=== PATIENT | female | born 1960 | race Caucasian/White ===

== ENCOUNTER 2021-05-29 12:05 | Inpatient (IN) | payer BC, MEDICAID ==
[~2021-05-29] VITALS: Ht 165.1 cm; Wt 56.3 kg
[2021-05-29] MEDS ORDERED: aspirin 81mg tab.chew PO ONE (12:20)
[2021-05-29 13:04] LABS: BASOPHILS % (AUTO) 0.5 % (0-1); EOSINOPHILS % (AUTO) 0 % (0-6); HEMATOCRIT 38.9 % (35.0-45.0); HEMOGLOBIN 12.8 g/dl (12.0-16.0); LYMPHOCYTES # (AUTO) 1.3 X10'3 (1.1-4.8); LYMPHOCYTES % (AUTO) 14.1 % (21-51); MEAN CORPUSCULAR HEMOGLOBIN 27.7 PG (27.0-31.0); MEAN CORPUSCULAR VOLUME 84.1 FL (78-98); MEAN PLATELET VOLUME 8.1 FL (7.4-10.4); MONOCYTES # (AUTO) 0.5 X10'3 (0-0.9); MONOCYTES % (AUTO) 5.8 % (2-12); NEUTROPHILS # (AUTO) 7.1 X10'3 (1.8-7.7); NEUTROPHILS % (AUTO) 79.6 % (42-75); PLATELET COUNT 273 X10'3 (140-440); RED BLOOD COUNT 4.63 X10'6 (4.20-5.60); RED CELL DISTRIBUTION WIDTH 13.9 % (11.5-14.5); WHITE BLOOD COUNT 8.9 X10'3 (4.5-11.0)
[2021-05-29 13:13] LABS: APTT 25 SECONDS (22-32)
[2021-05-29 13:15] LABS: ALANINE AMINOTRANSFERASE 27 U/L (12-78); ALBUMIN 3.7 G/DL (3.4-5.0); ALBUMIN/GLOBULIN RATIO 1.1 (1.1-1.5); ALKALINE PHOSPHATASE 54 IU/L (46-116); ANION GAP 10 (8-16); ASPARTATE AMINO TRANSFERASE 16 U/L (10-37); BILIRUBIN,TOTAL 0.8 MG/DL (0.1-1.0); BLOOD UREA NITROGEN 15 MG/DL (7-18); BUN/CREATININE RATIO 18.3 (6.6-38.0); CALCIUM 8.7 MG/DL (8.5-10.1); CHLORIDE 104 MMOL/L (99-107); CREATININE 0.82 MG/DL (0.40-0.90); GLUCOSE 146 MG/DL (70-104); POTASSIUM 3.7 MMOL/L (3.5-5.1); SODIUM 139 MMOL/L (135-145); TOTAL CARBON DIOXIDE 24.9 MMOL/L (24-32); TOTAL PROTEIN 7.1 G/DL (6.4-8.2); eGFR 71 ML/MIN
[2021-05-29 13:23] LABS: MAGNESIUM 1.5 MG/DL (1.5-2.4)
--- NOTE | 2021-05-29 13:41 | NUR ---
Pt reports feeling very anxious about news of being admitted and concern about her heart. MD notified.
[2021-05-29] MEDS ORDERED: LORazepam 2 mg/ml vial IV ONE (13:45)
[2021-05-29] MEDS ORDERED: magnesium 4gm in 100ml NS 100 ML IV PRN (14:10)
[2021-05-29] MEDS ORDERED: potassium Cl 20 mEq SR tablet PO PRN ×2 (14:10)
[2021-05-29] MEDS ORDERED: magnesium Cl slow-release 64mg tablet PO PRN (14:10)
[2021-05-29] MEDS ORDERED: acetaminophen 325mg tablet PO PRN (14:10)
[2021-05-29] MEDS ORDERED: magnesium 2GM in 50ml NS 50 ML IV PRN (14:10)
[2021-05-29] MEDS ORDERED: PERFLUTREN PROTEIN-A MICROSPHR (Optison) 0.22 MG/ML 3ML VIAL IV ONE (14:10)
[2021-05-29] MEDS ORDERED: potassium CL 10mEq/100ml bag 100 ML IV PRN (14:10)
[2021-05-29] MEDS ORDERED: ondansetron/PF 4mg/2ml inj IV PRN (14:10)
[2021-05-29] MEDS ORDERED: metoprolol tartrate 1mg/ml inj IV ONE (14:15)
[2021-05-29] MEDS ORDERED: LISI10TA27 PO (15:31)
--- NOTE | 2021-05-29 15:51 | NUR ---
Metoprolol out of stock in [facility]. Called pharmacy, [facility] states "a tech should be coming around delivering medication."
[2021-05-29] MEDS: lisinopril 10 MG tablet PO SCH (16:05)
[2021-05-29] MEDS ORDERED: regadenoson 0.4mg/5ml syringe IV ONE (16:05)
[2021-05-29] MEDS: metoprolol succinate 25mg (24-HOUR) SR. Tablet PO SCH (16:05)
--- NOTE | 2021-05-29 16:19 | NUR ---
Pharmacy states they are out of metoprolol IV push, they will check rest of hospital and deliver to us if they find a dose.
[2021-05-29 16:58] LABS: POTASSIUM 3.7 MMOL/L (3.5-5.1)
[2021-05-29] MEDS: K and/or MAG REPLACEMENT MC SCH (18:39)
[2021-05-29] MEDS: LORazepam 1 MG tablet PO PRN (23:58)
[2021-05-30 05:05] LABS: ALBUMIN 3.6 G/DL (3.4-5.0); ANION GAP 9 (8-16); BLOOD UREA NITROGEN 13 MG/DL (7-18); BUN/CREATININE RATIO 18.1 (6.6-38.0); CALCIUM 8.7 MG/DL (8.5-10.1); CHLORIDE 107 MMOL/L (99-107); CHOL/HDL RATIO 1.9 (0.00-4.99); CHOLESTEROL 166 MG/DL (0-200); CREATININE 0.72 MG/DL (0.40-0.90); GLUCOSE 110 MG/DL (70-104); HDL CHOLESTEROL 87 MG/DL (35-60); LDL CHOLESTEROL 67 MG/DL (50-100); MAGNESIUM 1.9 MG/DL (1.5-2.4); SODIUM 142 MMOL/L (135-145); TOTAL CARBON DIOXIDE 25.7 MMOL/L (24-32); TRIGLYCERIDES 28 MG/DL (20-135); eGFR 83 ML/MIN
[2021-05-30 05:07] LABS: POTASSIUM 4.1 MMOL/L (3.5-5.1)
[2021-05-30 05:11] LABS: BASOPHILS # (AUTO) 0.1 X10'3 (0-0.2); EOSINOPHILS # (AUTO) 0.1 X10'3 (0-0.9); HEMOGLOBIN 12.5 g/dl (12.0-16.0); LYMPHOCYTES % (AUTO) 36.4 % (21-51); MEAN CORPUSCULAR HEMOGLOBIN 27.8 PG (27.0-31.0); MONOCYTES # (AUTO) 0.8 X10'3 (0-0.9); RED BLOOD COUNT 4.49 X10'6 (4.20-5.60)
[2021-05-30 05:13] LABS: BASOPHILS % (AUTO) 0.9 % (0-1); EOSINOPHILS % (AUTO) 1.1 % (0-6); HEMATOCRIT 38.3 % (35.0-45.0); LYMPHOCYTES # (AUTO) 3.4 X10'3 (1.1-4.8); MEAN CORPUSCULAR HGB CONC 32.6 g/dL (33.0-36.5); MEAN CORPUSCULAR VOLUME 85.2 FL (78-98); MEAN PLATELET VOLUME 9.1 FL (7.4-10.4); MONOCYTES % (AUTO) 8.7 % (2-12); NEUTROPHILS % (AUTO) 52.9 % (42-75); PLATELET COUNT 249 X10'3 (140-440); RED CELL DISTRIBUTION WIDTH 14.4 % (11.5-14.5); WHITE BLOOD COUNT 9.5 X10'3 (4.5-11.0)
[2021-05-30] MEDS: K and/or MAG REPLACEMENT MC SCH ×2 (08:00→20:00)
[2021-05-30] MEDS: lisinopril 10 MG tablet PO SCH (11:00)
--- NOTE | 2021-05-30 11:31 | NUR ---
Report given to FRANKLYN Abernathy, pt to go to room 7434H
[2021-05-30] MEDS: metoprolol succinate 25mg (24-HOUR) SR. Tablet PO SCH (11:35)
[2021-05-30 12:17] VITALS: BP 129/70
[2021-05-30 15:00] VITALS: BP 141/66
[2021-05-30 18:00] VITALS: BP 126/61
[2021-05-30 22:00] VITALS: BP 100/53
[2021-05-31 02:00] VITALS: BP 126/77
[2021-05-31] MEDS: LORazepam 1 MG tablet PO PRN ×2 (03:20→13:31)
[2021-05-31 06:00] VITALS: BP 127/61
[2021-05-31 06:56] LABS: BASOPHILS # (AUTO) 0.1 X10'3 (0-0.2); BASOPHILS % (AUTO) 0.8 % (0-1); EOSINOPHILS # (AUTO) 0.1 X10'3 (0-0.9); EOSINOPHILS % (AUTO) 1.1 % (0-6); HEMOGLOBIN 12.8 g/dl (12.0-16.0); LYMPHOCYTES # (AUTO) 2.4 X10'3 (1.1-4.8); LYMPHOCYTES % (AUTO) 32.5 % (21-51); MEAN CORPUSCULAR HEMOGLOBIN 27.8 PG (27.0-31.0); MEAN CORPUSCULAR HGB CONC 32.9 g/dL (33.0-36.5); MEAN CORPUSCULAR VOLUME 84.5 FL (78-98); MEAN PLATELET VOLUME 8.4 FL (7.4-10.4); MONOCYTES # (AUTO) 0.5 X10'3 (0-0.9); MONOCYTES % (AUTO) 6.2 % (2-12); NEUTROPHILS # (AUTO) 4.3 X10'3 (1.8-7.7); NEUTROPHILS % (AUTO) 59.4 % (42-75); PLATELET COUNT 260 X10'3 (140-440); RED BLOOD COUNT 4.62 X10'6 (4.20-5.60); RED CELL DISTRIBUTION WIDTH 14.2 % (11.5-14.5); WHITE BLOOD COUNT 7.3 X10'3 (4.5-11.0)
[2021-05-31 07:53] LABS: ALBUMIN 3.5 G/DL (3.4-5.0); ANION GAP 8 (8-16); BLOOD UREA NITROGEN 15 MG/DL (7-18); BUN/CREATININE RATIO 19.2 (6.6-38.0); CALCIUM 8.7 MG/DL (8.5-10.1); CHLORIDE 107 MMOL/L (99-107); CREATININE 0.78 MG/DL (0.40-0.90); GLUCOSE 109 MG/DL (70-104); MAGNESIUM 1.8 MG/DL (1.5-2.4); POTASSIUM 4.5 MMOL/L (3.5-5.1); SODIUM 140 MMOL/L (135-145); TOTAL CARBON DIOXIDE 24.6 MMOL/L (24-32); eGFR 76 ML/MIN
[2021-05-31] MEDS: K and/or MAG REPLACEMENT MC SCH ×2 (08:28→19:26)
[2021-05-31] MEDS: lisinopril 10 MG tablet PO SCH (08:29)
[2021-05-31] MEDS: metoprolol succinate 25mg (24-HOUR) SR. Tablet PO SCH (08:29)
[2021-05-31 11:00] VITALS: BP 150/73
[2021-05-31] MEDS ORDERED: nitroGLYCERIN 0.4mg SUBLingual tab SL PRN (11:40)
[2021-05-31] MEDS ORDERED: metoprolol tartrate 1mg/ml inj IV PRN (11:40)
[2021-05-31] MEDS ORDERED: aminophylline 250mg/10ml inj. IV PRN (11:40)
[2021-05-31] MEDS ORDERED: regadenoson 0.4mg/5ml syringe IV PRN (11:40)
[2021-05-31] MEDS ORDERED: iohexol 350MG/ML 100ml bottle IV ONE (13:01)
[2021-05-31 15:00] VITALS: BP 113/70
[2021-05-31 18:00] VITALS: BP 120/70
[2021-06-01] VITALS (15 sets, daily range): BP systolic 116–194; BP diastolic 56–96
[2021-06-01 06:30] LABS: BASOPHILS # (AUTO) 0.1 X10'3 (0-0.2); BASOPHILS % (AUTO) 0.7 % (0-1); EOSINOPHILS # (AUTO) 0.1 X10'3 (0-0.9); EOSINOPHILS % (AUTO) 1.7 % (0-6); HEMATOCRIT 38.8 % (35.0-45.0); HEMOGLOBIN 12.7 g/dl (12.0-16.0); LYMPHOCYTES # (AUTO) 2.9 X10'3 (1.1-4.8); LYMPHOCYTES % (AUTO) 37.4 % (21-51); MEAN CORPUSCULAR HEMOGLOBIN 27.7 PG (27.0-31.0); MEAN CORPUSCULAR HGB CONC 32.7 g/dL (33.0-36.5); MEAN CORPUSCULAR VOLUME 84.7 FL (78-98); MEAN PLATELET VOLUME 8.1 FL (7.4-10.4); MONOCYTES # (AUTO) 0.6 X10'3 (0-0.9); MONOCYTES % (AUTO) 7.5 % (2-12); NEUTROPHILS % (AUTO) 52.7 % (42-75); PLATELET COUNT 268 X10'3 (140-440); RED BLOOD COUNT 4.58 X10'6 (4.20-5.60); RED CELL DISTRIBUTION WIDTH 14.2 % (11.5-14.5); WHITE BLOOD COUNT 7.6 X10'3 (4.5-11.0)
[2021-06-01 06:36] LABS: ALBUMIN 3.4 G/DL (3.4-5.0); ANION GAP 7 (8-16); BLOOD UREA NITROGEN 12 MG/DL (7-18); BUN/CREATININE RATIO 15.8 (6.6-38.0); CALCIUM 8.6 MG/DL (8.5-10.1); CHLORIDE 108 MMOL/L (99-107); CREATININE 0.76 MG/DL (0.40-0.90); GLUCOSE 104 MG/DL (70-104); MAGNESIUM 1.8 MG/DL (1.5-2.4); POTASSIUM 4.1 MMOL/L (3.5-5.1); SODIUM 140 MMOL/L (135-145); TOTAL CARBON DIOXIDE 24.6 MMOL/L (24-32); eGFR 78 ML/MIN
[2021-06-01] MEDS: K and/or MAG REPLACEMENT MC SCH (07:43)
[2021-06-01] MEDS: LORazepam 1 MG tablet PO PRN (08:32)
--- NOTE | 2021-06-01 08:34 | NUR ---
Patient off the floor for a cardiac stress test.
[2021-06-01] MEDS: metoprolol succinate 25mg (24-HOUR) SR. Tablet PO SCH (10:42)
[2021-06-01] MEDS: lisinopril 10 MG tablet PO SCH (10:42)
--- NOTE | 2021-06-01 11:41 | NUR ---
Notified MD that patient stress test results are in.
[2021-06-01] MEDS ORDERED: METO-395 PO (11:43)
--- NOTE | 2021-06-01 13:30 | NUR ---
Patient discharged from facility. 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 Patient verbalized understanding. IV line discontinue. Patient left with all personal belonging.
== END 2021-06-01 13:30 | disposition home or self-care (01) | DRG 880 ==
LOC: ER 12:06 → ED HOLD 14:12 → PCU 3S 05-30 11:50
PROVIDERS: ADMIT Internal Medicine; ATTEND Internal Medicine
PROC: B32T1ZZ Computerized Tomography (CT Scan) of Left Pulmonary Artery using Low Osmolar Contrast (ICD-10-PCS; 2021-05-31)
PROC: B3201ZZ Computerized Tomography (CT Scan) of Thoracic Aorta using Low Osmolar Contrast (ICD-10-PCS; 2021-05-31)
PROC: B32S1ZZ Computerized Tomography (CT Scan) of Right Pulmonary Artery using Low Osmolar Contrast (ICD-10-PCS; 2021-05-31)
PROC: 4A02XM4 Measurement of Cardiac Total Activity, External Approach (ICD-10-PCS; principal; 2021-06-01)
PROC: 3E033HZ Introduction of Radioactive Substance into Peripheral Vein, Percutaneous Approach (ICD-10-PCS; 2021-06-01)
DX: F41.9 Anxiety disorder, unspecified (principal); K91.2 Postsurgical malabsorption, not elsewhere classified; E11.9 Type 2 diabetes mellitus without complications; F41.0 Panic disorder [episodic paroxysmal anxiety]; R00.0 Tachycardia, unspecified; F43.10 Post-traumatic stress disorder, unspecified; I10 Essential (primary) hypertension; Z96.642 Presence of left artificial hip joint; R22.2 Localized swelling, mass and lump, trunk
CPT/HCPCS: 36415; 71045; 71275; 78452; 80048; 80053; 80061; 83735; 83880; 84132; 84439; 84443; 84484; 85025; 85610; 85730; 93005; 93017; 93306; 96374; 99285; A9500; G0378; J0280; J2060; J2785; Q9967